=== PATIENT | male | born 1970 | race Caucasian/White ===

== ENCOUNTER 2017-05-13 16:00 | Emergency (ER) | payer BC ==
[2017-05-13] MEDS ORDERED: Silver Sulfadiazine 1% Crm 50 GM Tube TOP ONE (16:28)
[2017-05-13] MEDS ORDERED: Silver Sulfadiazine 1% Crm 50 GM Tube TOP SCH (16:30)
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
[2017-05-13 16:49] VITALS: BP 146/54
[2017-05-13] MEDS ORDERED: Diphtheria,Pertussis(Acell),Tetanus Vaccine 0.5 ML SDV IM ONE (16:51)
[2017-05-13] MEDS ORDERED: traMADol 50 MG Tab ONE (17:08)
[2017-05-13] MEDS ORDERED: Bacitracin/Neomycin/Polymyxin B Oint 0.9 GM U/D Packet ONE (17:14)
[2017-05-13] MEDS ORDERED: traMADol 50 MG Tab PO ONE (18:00)
== END 2017-05-13 17:15 | disposition home or self-care (01) ==
LOC: KA.ED 16:00
DX: T24.201A Burn of second degree of unspecified site of right lower limb, except ankle and foot, initial encounter (principal); T20.10XA Burn of first degree of head, face, and neck, unspecified site, initial encounter; Z23 Encounter for immunization; X08.8XXA Exposure to other specified smoke, fire and flames, initial encounter
CPT/HCPCS: 90471; 90715; 99283; A9270